=== PATIENT | male | born 1955 | race African-American/Black ===

== ENCOUNTER 2017-09-24 12:05 | Emergency (ER) | payer SELFPAY ==
[2017-09-24 14:26] VITALS: BP 154/82
== END 2017-09-24 14:26 | disposition home or self-care (01) ==
LOC: ED 12:05
DX: S76.011A Strain of muscle, fascia and tendon of right hip, initial encounter (principal); X58.XXXA Exposure to other specified factors, initial encounter; Y93.89 Activity, other specified; Y92.89 Other specified places as the place of occurrence of the external cause; Y99.8 Other external cause status
CPT/HCPCS: J1885